=== PATIENT | female | born 1945 | race Caucasian/White ===

== ENCOUNTER 2018-08-01 14:07 | Outpatient (CLI) | payer MEDICARE, OTHER ==
--- NOTE | 2018-08-01 14:50 | RAD ---
THORACIC SPINE THREE VIEWS: HISTORY: Collapsed vertebrae. Compression fracture. COMPARISON: None. FINDINGS: A dorsal column stimulator is identified. Limited evaluation of the upper thoracic spine on the late ral projection. There is mild loss of vertebral body height at T10 and T8. Minimal loss of vertebra l body height may be present at T9. Questionable superior endplate irregularity at T11. There is di ffuse bony demineralization. Cervical fusion hardware is noted. IMPRESSION: Mild compression deformity at T8 and T10. POS: [facility]
== END 2018-08-01 14:08 | disposition home or self-care (01) ==
LOC: TBSIIMAG 14:07
PROVIDERS: ATTEND Neurological Surgery
DX: M48.56XA Collapsed vertebra, not elsewhere classified, lumbar region, initial encounter for fracture (principal); M43.8X4 Other specified deforming dorsopathies, thoracic region
CPT/HCPCS: 72070

== ENCOUNTER 2018-08-21 12:34 | Outpatient (CLI) | payer MEDICARE, OTHER ==
--- NOTE | 2018-08-21 13:42 | RAD ---
THORACIC SPINE 3 VIEWS: HISTORY: Followup compression fracture. COMPARISON: Radiograph 08/01/2018. FINDINGS: There is similar appearance of the dorsal column stimulator. Levoscoliosis centered at the thoracolu mbar junction. T8 and T10 compression deformities are similar. IMPRESSION: Similar examination of the thoracic spine. POS: [facility]
== END 2018-08-21 12:35 | disposition home or self-care (01) ==
LOC: TBSIIMAG 12:34
PROVIDERS: ATTEND Neurological Surgery
DX: M48.56XA Collapsed vertebra, not elsewhere classified, lumbar region, initial encounter for fracture (principal)
CPT/HCPCS: 72072